=== PATIENT | male | born 1965 | race Caucasian/White ===

== ENCOUNTER 2024-12-10 06:17 | Day surgery (SDC) | payer OTHER ==
[2024-12-10] VITALS (13 sets, daily range): BP systolic 109–169; BP diastolic 68–105
[~2024-12-10] VITALS: Ht 180.3 cm; Wt 141.0 kg
[~2024-12-10 06:17] MED LIST: NAPR550 PO; OXYACE5T PO
[2024-12-10] MEDS ORDERED: Amiodarone HCl200 MG PO (06:43)
[2024-12-10] MEDS ORDERED: ELIQUIS5 M2 PO (06:43)
[2024-12-10] MEDS ORDERED: JARDIANCE10 MG PO (06:44)
[2024-12-10] MEDS ORDERED: ALEVAZOL56.7 G1 TOP (06:44)
[2024-12-10] MEDS ORDERED: LOPE2C PO (06:45)
[2024-12-10] MEDS ORDERED: GABA400 PO (06:45)
[2024-12-10] MEDS ORDERED: LACT PO (06:45)
[2024-12-10] MEDS ORDERED: METF500C PO (06:46)
[2024-12-10] MEDS ORDERED: LOSA25 PO (06:46)
[2024-12-10] MEDS ORDERED: PRAV20 PO (06:49)
[2024-12-10] MEDS ORDERED: METO25ER PO (06:49)
[2024-12-10] MEDS ORDERED: Cialis10 MG PO (06:50)
[2024-12-10] MEDS ORDERED: SOAANZ20 M1 PO (06:51)
[2024-12-10] MEDS ORDERED: NS 1,000 ML IV ONE (06:55)
--- NOTE | 2024-12-10 07:35 | NUR ---
PT AWAKE AND CONVERSING POST PROCEDURE, DENIES PAIN, VSS ON RA.
--- NOTE | 2024-12-10 08:03 | NUR ---
PT DRESSED SELF WITHOUT ISSUE, IV REMOVED-CANNULA INTACT. PT AND RECEIVED DISCHARGE INSTRUCTIONS, MED LIST AND AFTER CARE INSTRUCTIONS; VERBALIZED GOOD UNDERSTANDING. PT LEFT FACILITY VIA W/C, CONDITION STABLE.
[2024-12-10] MEDS ORDERED: Propofol 10mg/ml 20 ml Vial (Procedural) IV ONE (09:03)
== END 2024-12-10 08:03 | disposition home or self-care (01) ==
LOC: MHTC 06:17
DX: I48.91 Unspecified atrial fibrillation (principal); E78.2 Mixed hyperlipidemia; E11.51 Type 2 diabetes mellitus with diabetic peripheral angiopathy without gangrene; E11.42 Type 2 diabetes mellitus with diabetic polyneuropathy; I50.20 Unspecified systolic (congestive) heart failure; Z79.01 Long term (current) use of anticoagulants; Z79.84 Long term (current) use of oral hypoglycemic drugs; Z79.899 Other long term (current) drug therapy
CPT/HCPCS: 92960; 93005; 93010; J2704; J7030

== ENCOUNTER 2025-01-16 14:41 | Emergency (ER) | payer OTHER ==
[~2025-01-16] VITALS: Ht 180.3 cm; Wt 136.1 kg
[~2025-01-16 14:41] MED LIST changes: +ALEVAZOL56.7 G1 TOP; +Amiodarone HCl200 MG PO; +Cialis10 MG PO; +ELIQUIS5 M2 PO; +GABA400 PO; +JARDIANCE10 MG PO; +LACT PO; +LOPE2C PO; +LOSA25 PO; +METF500C PO; +METO25ER PO; +PRAV20 PO; +SOAANZ20 M1 PO
[2025-01-16 15:25] LABS: BASOPHILS ABSOLUTE AUTO 0.05 K/mm3 (0.00-0.23); BASOPHILS PERCENT AUTO 1 % (0-2); EOSINOPHILS ABSOLUTE AUTO 0.12 K/mm3 (0.00-0.68); EOSINOPHILS PERCENT AUTO 2 % (0-6); Hematocrit 41.3 % (37.0-53.0); Hemoglobin 13.6 g/dL (13.5-17.5); IMMATURE GRAN ABSOLUTE AUTO 0.01 K/mm3 (0.00-0.10); IMMATURE GRAN PERCENT AUTO 0 % (0-1); LYMPHOCYTES ABSOLUTE AUTO 2.94 K/mm3 (0.84-5.20); LYMPHOCYTES PERCENT AUTO 37 % (21-46); MONOCYTES ABSOLUTE AUTO 0.54 K/mm3 (0.16-1.47); MONOCYTES PERCENT AUTO 7 % (4-13); Mean Corpuscular HGB Conc 32.9 g/dL (31.5-36.5); Mean Corpuscular Volume 92 fL (80-100); NEUTROPHILS ABSOLUTE AUTO 4.27 K/mm3 (1.96-9.15); NEUTROPHILS PERCENT AUTO 54 % (41-73); NRBC ABSOLUTE 0.00 K/mm3 (0.00-0.02); NRBC Auto 0.0 /100 WBC (0.0-0.2); Platelet Count 220 K/mm3 (150-400); RDW Coefficient Variation 13.3 % (11.7-14.2); RDW Standard Deviation 45.1 fL (35.1-46.3)
[2025-01-16 15:41] LABS: Alanine Aminotransfer (ALT/SGP 26.0 U/L (12-78); Albumin, Blood 3.4 g/dL (3.4-5.0); Albumin/Globulin Ratio 0.9 (0.8-1.8); Anion Gap 4.0 mmol/L (3-11); Aspartate Aminotrans (AST/SGOT 31.0 U/L (12-37); Bilirubin, Total 0.4 mg/dL (0.1-1.0); Blood Urea Nitrogen 24.0 mg/dL (8-24); CO2, Blood 26.0 mmol/L (21-32); Calcium, Blood 8.7 mg/dL (8.5-10.1); Chloride, Blood 110.0 mmol/L (98-108); Creatinine, Blood 1.36 mg/dL (0.60-1.20); Globulin, Blood 3.9 g/dL (2.2-4.0); Glucose, Blood 153.0 mg/dL (70-99); Potassium, Blood 4.7 mmol/L (3.5-5.5); Sodium, Blood 135.0 mmol/L (136-145); Total Protein, Blood 7.3 g/dL (6.4-8.2)
[2025-01-16 19:15] VITALS: BP 164/109
== END 2025-01-16 20:42 | disposition home or self-care (01) ==
LOC: ER 14:41
PROVIDERS: Student in an Organized Health Care Education/Training Program
DX: I48.91 Unspecified atrial fibrillation (principal); Z79.01 Long term (current) use of anticoagulants
CPT/HCPCS: 71046; 80053; 84484; 85025; 93005; 93010; 99285-25